=== PATIENT | male | born 1960 | race Caucasian/White ===

== ENCOUNTER → 2016-06-22 | Outpatient (CLI) | payer BC, SELFPAY | LOC: SLEEP 21:30 | DX: G47.33 Obstructive sleep apnea (adult) (pediatric) (principal) | CPT/HCPCS: 95810 ==

== ENCOUNTER → 2016-06-25 | Outpatient (CLI) | payer BC, SELFPAY ==
[2016-06-25 11:19] LABS: BUN/CREATININE RATIO 27 (0-10)
== END ==
LOC: US 06-03 13:00
PROVIDERS: Internal Medicine Nephrology
DX: N18.2 Chronic kidney disease, stage 2 (mild) (principal)
CPT/HCPCS: 36415; 80053; 81001; 82043; 82570; 84156

== ENCOUNTER → 2016-07-08 | Outpatient (CLI) | payer BC, SELFPAY ==
[2016-07-08 14:08] LABS: BUN/CREATININE RATIO 22 (0-10)
== END ==
LOC: OPSV 13:19 → CT 15:00
PROVIDERS: Internal Medicine Nephrology
DX: N28.89 Other specified disorders of kidney and ureter (principal); N18.2 Chronic kidney disease, stage 2 (mild); C64.1 Malignant neoplasm of right kidney, except renal pelvis
CPT/HCPCS: 36415; 74170; 80048; 82043; 82570; 84156; 96360; J7030; J7050; Q9962

== ENCOUNTER → 2016-08-20 | Outpatient (CLI) | payer BC, OTHER | LOC: CT 15:09 | DX: N28.89 Other specified disorders of kidney and ureter (principal) | CPT/HCPCS: 71250 ==

== ENCOUNTER → 2021-10-03 | Outpatient (CLI) | payer BC ==
[~2021-10-03] MED LIST: ASPIRIN EC81 MG PO; CATAPRES 0.1MG0.1 MG PO; CELECOXIB100 MG PO; FENOFIBRATE145 MG PO; FISH OIL/OMEGA-3 PO; GLYBURIDE-METF1 EAC1 PO; HYDRALAZINE HCL50 MG PO; INVOKANA100 MG PO; LEVOTHYROXINE75 MCG PO; METOPROLOL TAR100 MG PO; NIFEDIPINE ER60 M1 PO; OZEMPIC0.25 MG/0. SQ; PIOGLITAZONE HC30 MG PO; SODIUM BICARBO650 MG PO; VALSARTAN320 MG PO; VITAMIN D3125 MCG PO
== END ==
LOC: RT 10:44
PROVIDERS: Internal Medicine Nephrology
DX: E87.2 Acidosis (principal)
CPT/HCPCS: 80048; 82803